=== PATIENT | male | born 1980 | race Caucasian/White ===

== ENCOUNTER → 2016-12-19 | Day surgery (SDC) | payer OTHER ==
--- NOTE | 2016-12-17 16:03 | MH ---
cc: Bacilio KNOX M.D. DATE OF ADMISSION: 12/19/2016 ADMITTING DIAGNOSIS: Torn medial meniscus right knee now for arthroscopy right knee. HISTORY: this pleasant 36-year-old male being admitted today for arthroscopy right knee due to torn posterior horn, medial meniscus. PAST MEDICAL HISTORY: The past history the patient has a history of back of back pain. SOCIAL HISTORY: He dips tobacco and drinks some alcohol. REVIEW OF SYSTEMS Noncontributory. FAMILY HISTORY Noncontributory. MEDICATIONS: 1. Cetirizine 10 mg a day 2. Zolpidem 5 mg a day. PAST SURGICAL HISTORY: Appendectomy. REVIEW OF SYSTEMS Noncontributory. FAMILY HISTORY Noncontributory. ALLERGIES IBUPROFEN MAMMAL MEAT PHYSICAL EXAMINATION IN GENERAL: We find a 36-year-old male well-developed, well-nourished, alert and oriented times three. Complaining of pain in his right knee. VITAL SIGNS: Blood pressure 120/72, pulse 85 regular, respirations 16, temperature 97.6, pulse oximetry 97% on room air. HEAD, EYES, EARS, NOSE, AND THROAT: Eyes Pupils equal, round, reactive to light and accommodation, Ears, nose, mouth clear. NECK: Supple LUNGS: Clear. HEART: Regular rate. ABDOMEN: Soft. Positive bowel sounds, nontender. EXTREMITIES: Reveal his right knee be tender with positive Santosh sign and positive apocrine negative Mike test. No swelling or erythema. Neurovascularly to his toes, pain upon full extension. IMPRESSION An [facility] was done of his right knee in [facility] which did reveal a large tear of posterior horn medial meniscus. IMPRESSION Time is torn posterior horn medial meniscus. PLAN Admission for arthroscopy right knee today. The patient understands procedure well and risks involved is given prescription postop pain control in the office. JMD UBALDO Taylor/liz /2:17 PM /3:37 PM
[~2016-12-19] VITALS: Ht 182.9 cm; Wt 86.0 kg
[~2016-12-19] MED LIST: *RESP: ALBUTEROL 2.5 MG/3 ML NEB (PRN) PERIprocedural Use ONLY NEB ONE; *morphine SULFATE 8 MG/ML PERIprocedure ONLY ONE; ACETAMINOPHEN 1000 MG/100 ML VIAL IV ONE; ACETAMINOPHEN/HYDROcodone 325 MG/5 MG TAB PO PRN; BUPIVACAINE HCL PF 0.25% 30 ML VIAL ONE; CETI10 PO; CETIRIZINE HCL 10 MG TAB PO SCH; CHLORHEXIDINE GLUCONATE 2 % 1 PACK (2 CLOTHS) TOPICAL PRN; CHLORHEXIDINE GLUCONATE 4% SOLN 120 ML BTL TOPICAL SCH; DO NOT ADM ANY ANTICOAGULANT DRUGS PRN; FAMOTIDINE 20 MG/2 ML VIAL ONE; INSULIN HUMAN REGULAR 1,000 UNITS/10 ML VIAL SQ PRN; LACTATED RINGER'S 1000 ML INJ 1,000 ML IV ONE; LACTATED RINGER'S 1000 ML IV PRN; MEPERIDINE HCL 50 MG/ML VIAL IM PRN; METOPROLOL TARTRATE 25 MG TAB PO PRN; MIDAZOLAM HCL 2 MG/2 ML VIAL ONE; ONDANSETRON HCL 4 MG/2 ML VIAL IV PUSH ONE; ONDANSETRON ODT 4 MG TAB PO PRN; POVIDONE IODINE 5% (ANTISEPSIS KIT) 4 APPLICATIONS EACH NARE PRN; PROPOFOL 200 MG/20 ML AMP IV ONE; SODIUM CHLORID 0.9% 500 ML IV PRN; ZOLP5TAB3 PO; ZOLPIDEM TARTRATE 5 MG TAB PO PRN; ceFAZolin 2 GM PREMIX 50 ML IV SCH; fentaNYL CITRATE 250 MCG/5 ML AMP ONE
[2016-12-19 07:15] VITALS: BP 131/86; PULSE 94; RESP 20; TEMP 98; O2SAT 100
[2016-12-19 07:41] LABS: AUTOMATED NEUTROPHIL # 2.6 TH/MM3 (1.8-7.7); BASOPHIL % 0.8 % (0.0-2.0); EOSINOPHIL # 0.2 TH/MM3 (0-0.4); EOSINOPHIL % 4.2 % (0.0-4.0); HEMATOCRIT 43.7 % (39.0-51.0); HEMO FLAGS DIFF FINAL; LYMPH % 11.9 % (9.0-44.0); LYMPHOCYTE # 0.4 TH/MM3 (1.0-4.8); MEAN CORPUSCULAR HEMOGLOBIN 30.2 PG (27.0-34.0); MEAN CORPUSCULAR HGB CONC 35.1 % (32.0-36.0); MONO % 12.2 % (0.0-8.0); NEUT % 70.9 % (16.0-70.0); PLATELET COUNT 125 TH/MM3 (150-450); RED BLOOD COUNT 5.08 MIL/MM3 (4.50-5.90); RED CELL DISTRIBUTION WIDTH 13.2 % (11.6-17.2); WHITE BLOOD COUNT 3.6 TH/MM3 (4.0-11.0)
[2016-12-19 07:42] LABS: BLOOD, URINE NEG (NEG); COMMENT (UR) CULT NOT INDICATED; CULTURE IF INDICATED CULT NOT INDICATED; GLUCOSE,URINE NEG (NEG); KETONE, URINE NEG (NEG); MUCUS URINE FEW /lpf (OCC); NITRITE,URINE NEG (NEG); URINE COLOR YELLOW (YELLW/STRAW)
[2016-12-19 07:49] LABS: APTT (PATIENT) 27.1 SEC (24.3-30.1); INTERNATIONAL NORMALIZED RATIO 0.9 RATIO; PROTHROMBIN TIME - PATIENT 10.4 SEC (9.8-11.6)
[2016-12-19 08:29] LABS: BLOOD UREA NITROGEN 13 MG/DL (7-18); GLOMERULAR FILTRATION RATE 87 ML/MIN (>89)
[2016-12-19 08:30] LABS: ALKALINE PHOSPHATASE 57 U/L (45-117)
[2016-12-19 08:31] LABS: ALT (GPT) 42 U/L (12-78); AST (GOT) 20 U/L (15-37); CHLORIDE 104 MEQ/L (98-107); POTASSIUM 3.6 MEQ/L (3.5-5.1); SODIUM (NA) 139 MEQ/L (136-145); TOTAL BILIRUBIN ADULT 1.2 MG/DL (0.2-1.0)
[2016-12-19 08:32] LABS: ANION GAP 8 MEQ/L (5-15); BICARBONATE 27.4 MEQ/L (21.0-32.0)
[2016-12-19 12:25] VITALS: BP 118/70; PULSE 70; RESP 18; TEMP 97.6; O2SAT 98
--- NOTE | 2016-12-19 14:01 | EKG ---
Date Performed: 12/19/2016 Time Performed: 07:58:07 PTAGE: 36 years EKG: Sinus rhythm NORMAL ECG NO PREVIOUS TRACING DOCTOR: Jayy Zamudio Interpretating Date/Time 12/19/2016 13:56:42
--- NOTE | 2016-12-19 20:48 | MP ---
cc: Bacilio KNOX M.D. DATE OF SURGERY 12/19/16 PREOPERATIVE DIAGNOSIS Torn medial meniscus right knee. POSTOPERATIVE DIAGNOSIS Torn medial meniscus right knee plus plica. SURGERY PERFORMED Arthroscopy, excision of torn medial meniscus, excision of plica from the superior patellofemoral joint, right knee. SURGEON Dr. Saima Knox GROUND TRANSPORTATION OPERATOR LON Hansen ANESTHESIA LMA PROCEDURE IN DETAIL The patient was brought to the operating room and placed on the operating room table in the supine position. After successful induction of general anesthesia, the patient's right leg was prepped and draped in the usual manner. The knee was then placed in a knee narayanan and tightened. Arthroscopic examination was then performed by making a stab wound over the proximal superior and medial aspect of the patellofemoral joint for insertion of the inflow cannula and fluid, followed by stab wounds over the medial and lateral joint margins respectively for insertion of the arthroscope, shaver and probe. Arthroscopic examination was then performed which revealed a large posterior horn tear medial meniscus removed using ArthroCare cutter shaver probe to afford smooth surface. The rest of the medial compartment found to be intact. The anterior cruciate found to be intact. The lateral compartment found to be intact. The patellofemoral joint found to have a plica at the most superior patellofemoral joint area removed using the ArthroCare system. The rest of the knee joint found to be intact. Wound irrigated copiously with lactated Ringer's solution. Excess fluid removed, 4 mL of 0.25% Marcaine plain inserted around the subcutaneous tissue for extra pain control in the joint. The skin approximated with interrupted 3-0 nylon suture. Wet and then dry dressing applied to wound followed by Xeroform gauze and sterile dressing and thigh-high Ashish wrap. No tourniquet utilized. Estimated blood loss 10 mL. Sponge and suture count correct. Joaquin FORREST was present during the entire procedure to include patient positioning and the procedure. Medical necessity of nurse practitioner pizza hut assistant was indicated in this case due to the surgical complexity of the case itself during the surgical case. The director surgical was working the back table while my surgical coordinator LON was directly assisting me. The patient tolerated procedure well and left the operating room in satisfactory condition. J. MD UBALDO Jimenez/ /11:25 AM /8:31 PM
== END | disposition home or self-care (01) ==
LOC: HSDC 06:37
PROVIDERS: ATTEND Surgery
DX: S83.241A Other tear of medial meniscus, current injury, right knee, initial encounter (principal); M67.51 Plica syndrome, right knee; F17.290 Nicotine dependence, other tobacco product, uncomplicated; Z88.6 Allergy status to analgesic agent; Z91.018 Allergy to other foods; X58.XXXA Exposure to other specified factors, initial encounter
CPT/HCPCS: 29881; 80053; 81001; 85025; 85610; 85730; 93005; 94664; J0131; J0690; J2250; J2270; J2405; J3010; J7120; J7613